=== PATIENT | female | born 1985 | race Caucasian/White ===

== ENCOUNTER 2016-07-18 15:13 | Emergency (ER) | payer MEDICAID, OTHER ==
[~2016-07-18] VITALS: Ht 162.6 cm; Wt 102.6 kg
[~2016-07-18 15:13] MED LIST: AUGM875T PO; BACT800T5 PO; FLUT1SPR9
[2016-07-18 15:20] VITALS: BP 140/85; PULSE 97; RESP 16; TEMP 98.5; O2SAT 97
[2016-07-18] MEDS ORDERED: ORPHENADRINE INJ 60 MG/2 ML AMP IM ONE (17:15)
[2016-07-18] MEDS ORDERED: KETOROLAC TROMETHAMINE 60 MG/2 ML (IM) VIAL IM ONE (17:15)
[2016-07-18] MEDS ORDERED: GARL500C5 PO (17:17)
[2016-07-18] MEDS ORDERED: MULT1TAB84 PO (17:17)
[2016-07-18] MEDS ORDERED: CYAN1TAB24 PO (17:17)
[2016-07-18] MEDS ORDERED: MAGN500T4 PO (17:17)
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
[2016-07-18] MEDS ORDERED: ZOFR4TAB3 SL (19:04)
[2016-07-18] MEDS ORDERED: CYCL1TAB29 PO (19:04)
[2016-07-18] MEDS ORDERED: IBUP800T23 PO (19:04)
== END 2016-07-18 19:10 | disposition home or self-care (01) ==
LOC: PHED 15:13 → PHEFT 19:10
DX: S16.1XXA Strain of muscle, fascia and tendon at neck level, initial encounter (principal); S39.012A Strain of muscle, fascia and tendon of lower back, initial encounter; S06.0X0A Concussion without loss of consciousness, initial encounter
CPT/HCPCS: 70450; 72125; 72131; 84703; 96372; 99284; J1885; J2360